=== PATIENT | female | born 1995 | race Caucasian/White ===

== ENCOUNTER 2023-03-23 13:12 | Emergency (ER) | payer OTHER, SELFPAY ==
--- NOTE | ~2023-03-23 | US_ITS ---
EXAMINATION: US ABDOMEN LIMITED CLINICAL INFORMATION: Right upper quadrant pain. COMPARISON: None available. TECHNIQUE: Real-time imaging of the right upper quadrant abdominal viscera. FINDINGS: PANCREAS: Normal. LIVER: Normal. The liver is normal in size. The liver contour is normal. Parenchymal echogenicity is normal. No focal hepatic lesion. There is no intrahepatic biliary duct dilatation seen. GALLBLADDER: Normal. The gallbladder is physiologically distended without evidence of stones, sludge, polyps, wall thickening or pericholecystic fluid. COMMON BILE DUCT: Normal in caliber measuring 0.3 cm in diameter. RIGHT KIDNEY: Normal. No hydronephrosis. No renal calculi or focal parenchymal lesions. The kidney measures 10.6 cm in maximum dimension. FREE FLUID: None. US/US abdomen limited IMPRESSION: Normal right upper quadrant abdomen ultrasound.
[2023-03-23 13:38] VITALS: BP 116/47; PULSE 81; RESP 18; TEMP 36.6; O2SAT 99; BMI 35.1
--- NOTE | 2023-03-23 13:38 | ED_ITS ---
HPI - Abdominal Pain General Chief Complaint: Abdominal Pain Stated Complaint: pain in stomach Time Seen by Provider: 03/23/23 14:39 Source: patient Mode of arrival: ambulatory History of Present Illness HPI narrative: 27-year-old female who presents with onset of epigastric discomfort yesterday that she describes as being intermittent and crampy in nature associated with some nausea and 1 episode of vomiting but denies any diarrhea. Otherwise no recent travel no urinary symptoms. Related Data Previous Rx's Medication Instructions Recorded ondansetron HCl 4 mg tablet 4 mg PO Q8H PRN nausea and 03/23/23 vomiting 4 days #10 tabs Allergies Allergy/AdvReac Type Severity Reaction Status Date / Time No Known Allergies Allergy Unverified 03/26/20 19:33 [No Known Allergies*] Review of Systems Review of Systems Pertinent positives and negatives as stated in HPI PMFSH Past Medical History Source: nursing notes reviewed Social History Social History Advance Directives: No Advance Directives Information Provided: No Physical Exam ED Vital Signs: Vital Signs - 24 hr 03/23/23 13:38 Temperature 98 F Pulse Rate 81 Respiratory Rate 18 Blood Pressure 116/47 L Pulse Oximetry 99 BMI result Body Mass Index 35.1 VITAL SIGNS: Reviewed. GENERAL: Well developed, well nourished, in no acute distress. HEAD: Normocephalic/atraumatic EYES: PERRLA, EOMI EARS: Ext canals without abnormality, TMs non-bulging and non-erythematous NOSE: Nares patent bilateral OROPHARYNX: no oral lesions noted, posterior pharynx clear NECK: Supple, no adenopathy LUNGS: Normal breath sounds. No adventitious sounds or accessory muscle use. SpO2<99> CARDIOVASCULAR: Regular rate and rhythm without noted murmurs ABDOMEN: Soft, mild epigastric pain without right upper quadrant pain, non- distended with bowel sounds. MUSCULOSKELETAL: No tenderness, deformities, or effusions noted on gross inspection. EXTREMITIES: No cyanosis, clubbing or edema. SKIN: Inspection of the skin reveals no rashes NEUROLOGIC: Alert and oriented x 4. Strength and sensation to light touch were grossly intact x 4. Course Course Course Narrative: This is an RME: Additional HPI, ROS, PE not included below will be deferred to primary provider. This is a 81-he[age]-female, with a past medical history of , presenting to the emergency department with complaints of abdominal pain since yesterday. Patient reports that she had intermittent cramping/burning right upper quadrant pain and epigastric pain since yesterday which was coming and going, reports that today pain has been constant. Endorsing nausea. Reports tubal ligation denies chance of . Denies history of abdominal surgeries. Plan: Labs, UA, ultrasound Medical Decision Making Medical Decision Making MDM Narrative: 27-year-old female with history and clinical presentation, DDX: Viral syndrome, gastritis, pancreatitis, cholecystitis, gastroenteritis I reviewed all investigations and hematologic indices are grossly within normal limits, there is no evidence of leukocytosis or left shift, no anemia or thrombocytopenia but there is a noted bump in eosinophils which may be consistent with patient's GI symptoms and gastroenteritis. Chemistry and sees are grossly within normal limits, no MARIA ESTHER and potassium levels are within normal range, there is a mild bump in ALT but otherwise liver enzymes are without abnormalities. Urinalysis does show trace leukocyte esterase with rbc's that are likely responsible for the leukocyte esterase and otherwise negative for UTI. Ultrasound negative for evidence to suggest any renal hydronephrosis, cholecystitis, lipase was negative and very low clinical suspicion for any evidence of pancreatitis. Patient received a GI cocktail and on re-evaluation is feeling much improved and will be discharged home. Differential Diagnosis Differential Diagnoses: The differential diagnosis associated with the presentation includes Please see the discussion above Admission/Observation Consideration of admission/observation: Escalation of care including admission/observation considered Please see the discussion above Lab Data [facility] Lab Attestation statement: I reviewed the patient's lab results. Please see the discussion above 03/23/23 14:27 03/23/23 14:27 Labs: Lab Results 03/23/23 Range/Units 14:27 WBC 7.7 (4.8-10.8) X10*3/uL RBC 4.59 (4.20-5.50) X10*6/uL Hgb 14.4 (12.0-16.0) g/dl Hct 42.2 (37.0-47.0) % MCV 91.9 (80.0-98.0) fL MCH 31.4 (27.0-33.0) pg MCHC 34.1 (31.0-35.0) g/dl RDW 11.5 (11.0-16.0) % Plt Count 166 (160-400) X10*3/uL MPV 12.1 (9.4-12.3) fL Immature Gran % (Auto) 0.4 (0.0-0.4) % Neut % (Auto) 58.1 (45-73) % Lymph % (Auto) 28.1 (20-40) % [place] % (Auto) 7.5 (2-11) % Eos % (Auto) 5.6 H (0-4) % Baso % (Auto) 0.3 (0-2) % Lymph # (Auto) 2.2 (1.2-4.9) X10*3/uL [place] # (Auto) 0.6 (0.1-1.2) X10*3/uL Eos # (Auto) 0.4 (0.0-0.4) X10*3/uL Baso # (Auto) 0.0 (0.0-0.2) X10*3/uL Abs Immat Gran (auto) 0.03 (0.00-0.03) X10*3/uL Absolute Neuts (auto) 4.5 (2.0-8.3) x10*3/uL Absolute Nucleated RBC 0.000 (0.0-0.012) X10*3/uL Nucleated RBC % (auto) 0.0 (0.0-0.2) /100WBC Sodium 141 (135-145) mmol/L Potassium 3.8 (3.3-5.1) mmol/L Chloride 109 H (96-108) mmol/L Carbon Dioxide 29 (22-29) mmol/L Anion Gap 7 L (12-20) BUN 13 (9-16) mg/dL Creatinine 0.76 (0.5-1.4) mg/dL Estim Creat Clear Calc 114.9 Estimated GFR > 60 Random Glucose 87 (60-115) mg/dL Calcium 9.2 (8.4-10.2) mg/dL Total Bilirubin 0.7 (0.0-1.0) mg/dL Direct Bilirubin 0.3 (0.0-0.5) mg/dL AST 22 (5-31) U/L ALT 37 H (0-31) U/L Alkaline Phosphatase 49 (39-117) U/L Total Protein 6.7 (6.5-8.0) g/dL Albumin 4.2 (3.5-5.0) g/dL Lipase 12 (8-78) U/L Urine Color Yellow Urine Appearance Clear Urine pH 8.5 (5.0-9.0) Ur Specific [place] 1.025 (1.005-1.025) Urine Protein Trace (Neg-Trace) mg/dL Urine Glucose (UA) Negative (Negative) mg/dL Urine Ketones Negative (Negative) mg/dL Urine Blood Negative (Negative) Urine Nitrite Negative (Negative) Ur Leukocyte Esterase Trace H (Negative) Urine RBC 3-5 H (0-2) /HPF Urine WBC 0-5 (0-5) /HPF Ur Squamous Epith Cells 3-5 (0-2) /HPF Urine Bacteria None Seen (None Seen) Hyaline Casts 0-2 (0-2) /LPF Radiology Impression Discussion of test interpretation with radiology: I have reviewed the radiologist's reading. Radiologist Impression: Please see the discussion above Medications Administered Discontinued Medications Generic Name Dose Route Start Last Admin Trade Name Freq PRN Reason Stop Dose Admin Lidocaine/Diphenhydr/Alum/Mg/Simeth 10 ml 03/23/23 14:59 03/23/23 15:40 Mag&Al/Sim/Diphenhyd/Lidocaine 10 Ml Oral.Susp PO 03/23/23 15:00 10 ml ONCE ONE Administration Protocol Ondansetron HCl 4 mg 03/23/23 14:59 03/23/23 15:41 Ondansetron Odt 4 Mg Tab.Rapdis TRANSLINGU 03/23/23 15:00 4 mg ONCE ONE Administration Discharge Plan Discharge Clinical Impression: Gastroenteritis Patient Disposition: Home, Self-Care Instructions: Diet for Stomach Ulcers and Gastritis (ED), Gastroenteritis (ED) Additional Instructions: 1. Continue stay well hydrated, you have a prescription for nausea control. 2. Recommend follow-up with your primary care doctor. Return to the ER for any worsening symptoms. Prescriptions: New ondansetron HCl 4 mg tablet 4 mg PO Q8H PRN (Reason: nausea and vomiting) 4 Days Qty: 10 0RF Referrals: Agatha Richards MD [Primary Care Provider] -
[2023-03-23 14:41] LABS: MANUAL DIFF FLAG NO
[2023-03-23 14:45] LABS: Appearance Urine Clear; Basophils Percent Auto 0.3 % (0-2); Color Urine Yellow; Eosinophils Absolute Auto 0.4 X10*3/uL (0.0-0.4); Eosinophils Percent Auto 5.6 % (0-4); Glucose Urine UA Negative (Negative); Hematocrit 42.2 % (37.0-47.0); Hemoglobin 14.4 g/dl (12.0-16.0); Imm Gran Abs Auto 0.03 X10*3/uL (0.00-0.03); Imm Gran Pct Auto 0.4 % (0.0-0.4); Leukocyte Esterase Urine Trace (Negative); Lymphocytes Absolute Auto 2.2 X10*3/uL (1.2-4.9); Lymphocytes Percent Auto 28.1 % (20-40); Mean Corpuscular HGB Conc 34.1 g/dl (31.0-35.0); Mean Corpuscular Hemoglobin 31.4 pg (27.0-33.0); Mean Corpuscular Volume 91.9 fL (80.0-98.0); Mean Platelet Volume 12.1 fL (9.4-12.3); Monocytes Absolute Auto 0.6 X10*3/uL (0.1-1.2); Monocytes Percent Auto 7.5 % (2-11); Neutrophils Absolute Auto 4.5 x10*3/uL (2.0-8.3); Neutrophils Percent Auto 58.1 % (45-73); Nitrite Urine Negative (Negative); PH 8.5 (5.0-9.0); Platelet Count 166 X10*3/uL (160-400); Red Blood Count 4.59 X10*6/uL (4.20-5.50); Red Cell Distribution Width 11.5 % (11.0-16.0); Specific Gravity - Urine 1.025 (1.005-1.025); UMIC TRIGGER UACC YES; Urine Blood Negative (Negative); Urine Ketones Negative (Negative); Urine Protein Trace mg/dL (Neg-Trace); White Blood Count 7.7 X10*3/uL (4.8-10.8)
[2023-03-23 14:48] LABS: Bacteria Urine None Seen (None Seen); Hyaline Casts Urine 0-2 /LPF (0-2); WBC Urine 0-5 /HPF (0-5)
--- OUTSIDE RECORDS SUMMARY | 2023-03-23 14:49 | XMS_ITS | Continuity of Care Document ---
Author Name Unknown Organization [facility] ter Address [address] [place] [address]- Care Team Providers Care Side Stitching Machine Operator Name Role Phone Agatha Richards MD Primary Care Physician [phone] Encounter [facility] Date(s): 10/04/21 - 10/04/[address] [id number] Discharge Disposition: A-D/C Home Attending Physician: Dre Dempsey MD Admitting Physician: Dre Dempsey MD Referring Physician: Dre Dempsey MD Allergies, Adverse Reactions, Alerts No Known Medication Allergies Immunizations Given and Recorded Vaccine Date Status Refusal Reason Measles/Mumps/Rubella Virus Vaccine 06/08/19 Given tetanus/diphtheria/pertussis, acel(Tdap) 12/21/14 Given influenza virus vaccine, inactivated 06/17/14 Give n Medications ibuprofen 800 mg oral tablet 800 mg, 1, tablet, By Mouth, Every 8 hours, # 40 tablet, Refills 0, Tot. Refills 0, Maintenance, 10/04/21 14:43:00 EDT, Route to Pharmacy Electronically, [id number], Partial fill upon patientrequest if the prescription is for a schedule II op... Start Date: 10/04/21 Status: Ordered oxyCODONE 5 mg oral capsule 1 capsule = 5 mg, By Mouth, Every 6 hours, PRN as needed for pain, # 12 capsule, 0 Refills, Maintenance, 10/04/21 14:43:00 EDT, Capsule, [id number], Partial fill upon patient request if the prescription is for a schedule II opioid drug., 157.4... Start Date: 10/04/21 Status: Ordered Tylenol 325 mg oral capsule 2 capsule = 650 mg, By Mouth, Every 4 hours, PRN as needed for pain, # 50 tablet, 0 Refills, Maintenance, 10/04/21 14:43:00 EDT, Capsule, [id number], Partial fill upon patient request if the prescription is for a schedule II opioid drug., 157.... Start Date: 10/04/21 Status: Ordered Problem List Condition Effective Dates Status Health Status Inform ant Anemia(Confirmed) Active Asthma(Confirmed) Active Abdominal mass, left upper quadrant(Confirmed) Active Obese class I(Confirmed) Active Vital Signs Most recent to oldest [Reference Range]: 1 2 3 Height 157.4 cm (10/04/21 12:27 PM) 157.4 cm (09/28/21 12:49 PM) Weight 84.5 kg (10/04/21 12:27 PM) 84.5 kg (09/28/21 12:49 PM) Oxygen Saturation [94-100 %] 96 % (10/04/21 3:45 PM) 95 % (10/04/21 3:30 PM) 98 % (10/04/21 3:15 PM) Pulse Rate [55-90 bpm] 62 bpm (10/04/21 12:27 PM) Body Mass Index [18.5-24.99] 34.11 *>HHI* (10/04/21 12:27 PM) 34.11 *>HHI* (09/28/21 12:49 PM) Blood Pressure [90-138/55-84 mm Hg] 116/67mm Hg (10/04/21 3:45 PM) 110/62mm Hg (10/04/21 3:30 PM) 120/64mm Hg (10/04/21 3:15 PM) Respiratory Rate [16-30 br/min] 11 br/min *L* (10/04/21 3:45 PM) 10 br/min *L* (10/04/21 3:30 PM) 10 br/min *L* (10/04/21 3:15 PM) Temperature [96.8-100.4 DegF] 97.3 DegF (10/04/21 2:45 PM) 99.4 DegF (10/04/21 12:27 PM) Mode of Delivery (Oxygen) Room air (10/04/21 4:30 PM) Room air (10/04/21 2:45 PM) Room air (10/04/21 12:27 PM) Blood pressure sites Arm, right (10/04/21 2:45 PM) Arm, left (10/04/21 12:27 PM) Temperature Route Temporal (10/04/21 2:45 PM) Temporal (10/04/21 12:27 PM) Dry Weight 84.5 kg (09/28/21 12:49 PM) Weight Obtained Via Patient/family state d (09/28/21 12:49 PM) Dry Weight Obtained Via Patient/family s tated (09/28/21 12:49 PM) Social History Social History Type Response Smoking Status Never smoker; Tobacc o user in household: No entered on: 10/17/14 Sex Female
--- OUTSIDE RECORDS SUMMARY | 2023-03-23 14:49 | XMS_ITS | Continuity of Care Document ---
Author Name Unknown Organization [facility] Address [address] [place] [address]- Care Team Providers Care Retail Service Lead Merchandiser Name Role Phone Tiera Damon DO Primary Care Physician Encounter [facility] [place] Date(s): 01/25/21 - 02/24/21 [facility] [address] [place] [id number] Allergies, Adverse Reactions, Alerts No Known Medication Allergies Substance Reaction Severity Status NKA Active Immunizations Given and Recorded Vaccine Date Status Refusal Reason Measles/Mumps/Rubella Virus Vaccine 06/08/19 Given tetanus/diphtheria/pertussis, acel(Tdap) 12/21/14 Given influenza virus vaccine, inactivated 06/17/14 Give n Problem List Condition Effective Dates Status Health Status Inform ant Asthma(Confirmed) Active Abdominal mass, left upper quadrant(Confirmed) Active Social History Social History Type Response Smoking Status Never smoker; Tobacc o user in household: No entered on: 10/17/14 Sex Female
--- OUTSIDE RECORDS SUMMARY | 2023-03-23 14:49 | XMS_ITS ---
Author Name Unknown Organization [facility] Address [address] [facility] [address] [address] [place] [address]- Encounter Date(s): 07/30/20 - 07/30/20 [facility] [address] [place] [address]- [phone] Encounter Diagnosis Rt groin pain(Discharge Diagnosis) - 07/30/20 Discharge Disposition: 01 Home or Self Care Attending Physician: MAXIMILIANO HUERTAS MD Admitting Physician: PHYSICIAN , EMERGENCY Allergies, Adverse Reactions, Alerts No Known Medication Allergies Vital Signs Most recent to oldest [Reference Range]: 1 2 3 Temperature Oral [36-37.9 DegC] 36.9 DegC (07/30/20 7:30 PM) 36.9 DegC (07/30/20 4:49 PM) Peripheral Pulse Rate [60-100 bpm] 67 bpm (07/30/20 4:49 PM) Heart Rate Monitored [60-100 bpm] 90 bpm (07/30/20 7:30 PM) 80 bpm (07/30/20 7:00 PM) 79 bpm (07/30/20 6:00 PM) Respiratory Rate [14-20 br/min] 18 br/min (07/30/20 7:30 PM) 15 br/min (07/30/20 7:00 PM) 18 br/min (07/30/20 6:00 PM) Blood Pressure [90-140/60-90 mmHg] 112/66mmHg (07/30/20 7:30 PM) 88/57mmHg *LOW* (07/30/20 7:00 PM) 102/66mmHg (07/30/20 6:00 PM) Mean Arterial Pressure 64 mmHg (07/30/20 7:00 PM) 75 mmHg (07/30/20 6:00 PM) Results Laboratory List Name Date Automated Differential 07/30/20 CBC with Diff 07/30/20 Chemistry Panel 7 (CHEM7) 07/30/20 Glomerular Filtration Rate Calculation PT 07/30/20 hCG Qual Urine 07/30/20 Most recent to oldest [Reference Range]: 1 Creatinine [0.6-1.0 mg/dL] 0.8 mg/dL (07/30/20 6:02 PM) U hCG Qual Negative 1 (07/30/20 6:02 PM) Basophil Auto [0.0-1.0 %] 0.7 % (07/30/20 6:02 PM) BUN [7-18 mg/dL] 12 mg/dL (07/30/20 6:02 PM) Chloride Level [98-107 mEq/L] 106 mEq/L (07/30/20 6:02 PM) CO2 [21-32 mmol/L] 28 mmol/L (07/30/20 6:02 PM) Eos Auto [1.0-3.0 %] 9.2 % *HI* (07/30/20 6:02 PM) Glucose Level [70-100 mg/dL] 87 mg/dL (07/30/20 6:02 PM) Hct [37.0-47.0 %] 38.7 % (07/30/20 6:02 PM) Hgb [12.0-16.0 gm/dL] 13.4 gm/dL (07/30/20 6:02 PM) INR 1.1 2 *NA* (07/30/20 6:02 PM) Lymph Auto [22.0-44.0 %] 35.4 % (07/30/20 6:02 PM) MCH [27.0-31.0 pg] 31.8 pg *HI* (07/30/20 6:02 PM) MCHC [31.0-37.0 gm/dL] 34.7 gm/dL (07/30/20 6:02 PM) MCV [88.0-100.0 fl] 91.7 fl (07/30/20 6:02 PM) [place] Auto [3.0-7.0 %] 6.2 % (07/30/20 6:02 PM) MPV [7.0-11.1 fl] 8.5 fl (07/30/20 6:02 PM) Neutro Auto [40.0-70.0 %] 48.6 % (07/30/20 6:02 PM) Platelet [150-450 k/mcL] 207 k/mcL (07/30/20 6:02 PM) Potassium Level [3.5-5.1 mEq/L] 3.9 mEq/ L (07/30/20 6:02 PM) PT [10.2-12.9 second(s)] 12.3 second(s) (07/30/20 6:02 PM) RBC [4.20-5.40 million/mcL] 4.22 million /mcL (07/30/20 6:02 PM) RDW [11.5-13.5 %] 13.3 % (07/30/20 6:02 PM) Sodium Level [136-145 mEq/L] 141 mEq/L (07/30/20 6:02 PM) WBC [4.5-11.0 k/mcL] 5.3 k/mcL (07/30/20 6:02 PM) Abs Neutrophil [1.60-6.60 k/mcL] 2.57 k/ mcL (07/30/20 6:02 PM) Abs Lymphocyte [0.90-3.90 k/mcL] 1.90 k/ mcL (07/30/20 6:02 PM) Abs Monocyte [0.20-1.00 k/mcL] .33 k/mcL (07/30/20 6:02 PM) Abs Eosinophil [0.00-0.40 k/mcL] .49 k/m cL *HI* (07/30/20 6:02 PM) Abs Basophil [0.00-0.10 k/mcL] .04 k/mcL (07/30/20 6:02 PM) eGFR-AA [>=60 mL/min/1.73m^2] >60 mL/min /1.73m^2 (07/30/20 6:02 PM) eGFR-KIM [>=60 mL/min/1.73m^2] >60 mL/mi n/1.73m^2 (07/30/20 6:02 PM) Anion Gap 7 *NA* (07/30/20 6:02 PM) 1Result Comment: Device #[id number] 2Result Comment: Autoverified Result by Discern Rule Social History Social History Type Response Smoking Status Never (less than 100 in lifetime) entered on: 07/30/20 Sex Female Hospital Discharge Instructions Patient Education 07/30/2020 19:28:34 Abdominal Pain, Unknown Cause, (Female) Unknown Causes of Abdominal Pain??(Female) The exact cause of your belly (abdominal) pain is not clear. This does not mean that this is something to worry about. Everyone likes to know the exact cause of the problem. But sometimes with belly pain, there is no clear-cut cause, and this could be a good thing. The good news is that your symptoms can be treated, and you will feel better.?? Your condition does not seem serious now. But sometimes the signs of a serious problem may take more time to appear. For this reason,??it is important for you to watch for any new symptoms, problems,??or worsening of your condition. Over the next few days, the abdominal pain may come and go. Or it may be constant. Other common symptoms can include nausea and vomiting. Sometimes it can be difficult to tell if you feel nauseous. You may just feel bad and not connect that feeling to nausea. Constipation, diarrhea, and a fever maygo along with the pain. The pain may continue even if treated correctly over the following days. Depending on how things go, sometimes the cause can become clear and may need more??or different treatment. Additional evaluations, medicines, or tests may also be needed. Home care Your healthcare provider may prescribe medicine for pain, symptoms, or an infection. ??Follow the healthcare provider's instructions for taking these medicines. General care ???Rest as much as you can until your next exam. No strenuous activities. ???Try to find positions that ease discomfort. A small pillow placed on the abdomen may help relieve pain. ???Something warm on your abdomen (such as a heating pad) may help, but be careful not to burn yourself. Diet ???Don???t??force yourself to eat, especially if having cramps, vomiting, or diarrhea. ???Water is important so you don't get dehydrated. Soup may also be good. Sports drinks may also help, especially if they are not too acidic. Don't drink sugary drinks as this can make things worse. Take liquids in small amounts. Don???t??guzzle them. ???Caffeine sometimes makes the pain and cramping worse. ???Don???t take??dairy products if you have vomiting or diarrhea. ???Don't eat large amounts at a time. Wait a few minutes between bites. ???Eat a diet low in fiber (called a low-residue diet). Foods allowed include refined breads, whiterice, fruit and vegetable juices without pulp, tender meats. These foods will pass more easily through the intestine. ???Don???t have??whole-grain foods, whole fruits and vegetables, meats, seeds and nuts, fried or fatty foods, dairy, alcohol and spicy foods until your symptoms go away. Follow-up care Follow up with your healthcare provider, or as advised, if your pain does not begin to improve in the next 24 hours. Call 911 Call??911 if any of these occur: ???Trouble breathing ???Confusion ???Fainting or loss of consciousness ???Rapid heart rate ???Seizure When to seek medical advice Call your healthcare provider right away if any of these occur: ???Pain gets worse or moves to the right lower abdomen ???New or worsening vomiting or diarrhea ???Swelling of the abdomen ???Unable to pass stool for more than??3 days ???Fever of 100.4??F (38??C) or higher, or as directed by your healthcare provider. ???Blood in vomit or bowel movements (dark red or black color) ???Yellow color of eyes and skin (jaundice) ???Weakness, dizziness ???Chest, arm, back, neck, or jaw pain ???Unexpected vaginal bleeding or missed period ???Can't keep down liquids or water and you are getting dehydrated ?? [id number] [employer]. [address] [place] [address], [place] [address]. All rights reserved. This information is not intended as a substitute for professional medical care. Always follow your healthcare professional's instructions. Follow Up Care 07/30/2020 16:48:40 With:[facility] Address: [place], [place] Business (1) When:3 Days Mental Status 07/30/20 Barriers to Learning None evident Languages Azeri
--- OUTSIDE RECORDS SUMMARY | 2023-03-23 14:49 | XMS_ITS | Continuity of Care Document ---
Author Name Unknown Organization [facility] Address [address] [place] [address]- Care Team Providers Care Buffing Wheel Raker Name Role Phone Tiera Damon DO Primary Care Physician [phone] [place] [facility] [place]s): 01/27/21 - 02/26/21 [facility] [address] [place] [id number] Allergies, Adverse Reactions, Alerts No Known [...]
--- OUTSIDE RECORDS SUMMARY | 2023-03-23 14:49 | XMS_ITS | Continuity of Care Document ---
Author Name Unknown Organization [facility] ter Address [address] [place] [address]- Care Team Providers Care Civil Engineering Project Designer Name Role Phone Tiera Damon DO Primary Care Physician Encounter [facility] Date(s): 08/09/19 - 08/09/[address] [address]- [facility] Attending Physician: Tomi Lima MD Allergies, Adverse Reactions, Alerts No Known Medication Allergies Substance Reaction Severity Status NKA Active Immunizations Given and Recorded Vaccine Date Status Refusal Reason Measles/Mumps/Rubella Virus Vaccine 06/08/19 Given tetanus/diphtheria/pertussis, acel(Tdap) 12/21/14 Given influenza virus vaccine, inactivated 06/17/14 Give n Medications ferrous sulfate 325 mg oral enteric coated tablet 1 tablet = 325 mg, By Mouth, 2 times a day, # 90 tablet, 0 Refills, Maintenance, 10/13/14 22:20:50,EC Tablet, 1 tablet By Mouth 2 times a day Start Date: 10/13/14 Status: Ordered ibuprofen 600 mg oral tablet 1 tablet = 600 mg, By Mouth, 3 times a day, PRN Pain , Mild, # 30 tablet, 0 Refills, Maintenance, 01/14/15 13:43:14, Tablet Start Date: 01/14/15 Stop Date: 01/24/15 Status: Ordered ibuprofen 600 mg oral tablet 1 tablet = 600 mg, By Mouth, 3 times a day, # 30 tablet, 0 Refills, Maintenance, 01/14/15 13:51:40,Tablet Start Date: 01/14/15 Stop Date: 01/24/15 Status: Ordered ibuprofen 600 mg oral tablet 600 mg, 1, tablet, By Mouth, 3 times a day, PRN, # 42 tablet, Refills 0, Tot. Refills 0, Maintenance, Pain , Mild, 10/11/15 16:42:03, Print Requisition Start Date: 10/11/15 Stop Date: 10/25/15 Status: Ordered ibuprofen 600 mg oral tablet 1 tablet = 600 mg, By Mouth, 4 times a day, # 30 tablet, 2 Refills, Maintenance, 02/18/15 7:29:36, Tablet Start Date: 02/18/15 Status: Ordered ibuprofen 600 mg oral tablet 1 tablet = 600 mg, By Mouth, Every 8 hours, Take with food, # 15 tablet, 0 Refills, Maintenance, 02/12/15 16:32:36, Tablet Start Date: 02/12/15 Stop Date: 02/17/15 Status: Ordered loperamide 2 mg oral tablet 1 tablet = 2 mg, By Mouth, Every 4 hours, PRN for loose stool, # 60 tablet, 0 Refills, Maintenance,01/02/16 15:10:34, Tablet Start Date: 01/02/16 Status: Ordered Multivitamin, By Mouth, 0 Refills, Maintenance, 06/17/14 15:10:15 Start Date: 06/17/14 Status: Ordered Nitrofurantoin 100 mg, By Mouth, 2 times a day, Maintenance, 01/05/16 17:08:56 Start Date: 01/05/16 Stop Date: 01/10/16 Status: Ordered Percocet-5/325 325 mg-5 mg oral tablet 1 tablet, By Mouth, Every 4 hours, PRN for pain, # 24 tablet, 0 Refills, Maintenance, 02/18/15 7:29:35, Tablet Start Date: 02/18/15 Status: Ordered Zofran 4 mg oral tablet 1 tablet = 4 mg, By Mouth, Every 8 hours, PRN as needed for nausea/vomiting, # 9 tablet, 0 Refills,Maintenance, 07/22/17 23:16:31, Tablet Start Date: 07/22/17 Stop Date: 07/25/17 Status: Ordered ZyrTEC 10 mg oral tablet 1 tablet = 10 mg, By Mouth, Daily, # 30 tablet, 0 Refills, Maintenance, 12/09/15 12:41:27, Tablet Start Date: 12/09/15 Status: Ordered Problem List Condition Effective Dates Status Health Status Inform ant Asthma(Confirmed) Active Abdominal mass, left upper quadrant(Confirmed) Active Social History Social History Type Response Smoking Status Never smoker; Tobacc o user in household: No entered on: 10/17/14 Sex Female
--- OUTSIDE RECORDS SUMMARY | 2023-03-23 14:49 | XMS_ITS | Continuity of Care Document ---
Author Name Unknown Organization [facility] ter Address [address] [place] [id number]- Care Team Providers Care Spa Associate Name Role Phone Tiera Damon DO Primary Care Physician En[place] [facility] Date(s): 07/15/19 - 07/15/[address] [address]- [facility] Attending Physician: Karen Diaz MD Allergies, Adverse Reactions, Alerts No Known [...]
--- OUTSIDE RECORDS SUMMARY | 2023-03-23 14:49 | XMS_ITS | Continuity of Care Document ---
Author Name Unknown Organization [facility] Address [address] [place] [id number] Care Team Providers Care Concrete Pointer Name Role Phone Tiera Damon DO Primary Care Physician Encounter [facility] Date(s): 03/26/21 - 04/25/21 [facility] [address] [place] [id number] Allergies, Adverse Reactions, Alerts No Known [...]
[2023-03-23 15:00] LABS: Alanine Aminotransferase 37 U/L (0-31); Albumin Level 4.2 g/dL (3.5-5.0); Alkaline Phosphatase 49 U/L (39-117); Anion Gap 7 (12-20); Aspartate Amino Transferase 22 U/L (5-31); Bilirubin Direct 0.3 mg/dL (0.0-0.5); Bilirubin Total 0.7 mg/dL (0.0-1.0); Blood Urea Nitrogen 13 mg/dL (9-16); Calcium 9.2 mg/dL (8.4-10.2); Carbon Dioxide 29 mmol/L (22-29); Chloride 109 mmol/L (96-108); Creatinine Clr Calc Pharmacy 114.9; Estimated Glomerular Filt Rate > 60; Glucose Random 87 mg/dL (60-115); Lipase 12 U/L (8-78); Potassium 3.8 mmol/L (3.3-5.1); Sodium 141 mmol/L (135-145); Total Protein 6.7 g/dL (6.5-8.0)
[2023-03-23] MEDS: Mag&Al/Sim/Diphenhyd/Lidocaine 10 ML ORAL.SUSP PO (15:40)
[2023-03-23] MEDS: Ondansetron ODT 4 MG TAB.RAPDIS TRANSLINGU (15:41)
[2023-03-23 16:05] LABS: HCG Quantitative < 2 mIU/mL
== END 2023-03-23 16:41 | disposition home or self-care (01) ==
PROVIDERS: Physician Assistant Medical; Emergency Provider Student in an Organized Health Care Education/Training Program; PCP Internal Medicine
DX: K52.9 Noninfective gastroenteritis and colitis, unspecified (principal)
CPT/HCPCS: 36415; 76705; 80048; 80076; 81001; 83690; 84702; 85025; 99284

== ENCOUNTER 2023-12-13 09:54 | Outpatient (REF) | payer OTHER, SELFPAY ==
[2023-12-13 10:30] LABS: MANUAL DIFF FLAG NO
[2023-12-13 10:43] LABS: Basophils Percent Auto 0.3 % (0-2); Eosinophils Absolute Auto 0.5 X10*3/uL (0.0-0.4); Hematocrit 40.5 % (37.0-47.0); Hemoglobin 14.3 g/dl (12.0-16.0); Imm Gran Abs Auto 0.03 X10*3/uL (0.00-0.03); Imm Gran Pct Auto 0.4 % (0.0-0.4); Lymphocytes Percent Auto 26.4 % (20-40); Mean Corpuscular HGB Conc 35.3 g/dl (31.0-35.0); Mean Corpuscular Hemoglobin 32.2 pg (27.0-33.0); Mean Corpuscular Volume 91.2 fL (80.0-98.0); Mean Platelet Volume 11.7 fL (9.4-12.3); Monocytes Absolute Auto 0.5 X10*3/uL (0.1-1.2); Neutrophils Absolute Auto 4.4 x10*3/uL (2.0-8.3); Neutrophils Percent Auto 58.9 % (45-73); Platelet Count 198 X10*3/uL (160-400); Red Blood Count 4.44 X10*6/uL (4.20-5.50); Red Cell Distribution Width 11.8 % (11.0-16.0); White Blood Count 7.4 X10*3/uL (4.8-10.8)
[2023-12-13 10:52] LABS: Estimated Average Glucose 82 mg/dL; Hemoglobin A1c % 4.5 % (<6.0)
[2023-12-13 11:08] LABS: Alanine Aminotransferase 27 U/L (0-31); Albumin Level 4.4 g/dL (3.5-5.0); Alkaline Phosphatase 49 U/L (39-117); Anion Gap 14 (12-20); Aspartate Amino Transferase 22 U/L (5-31); Bilirubin Total 0.9 mg/dL (0.0-1.0); Blood Urea Nitrogen 14 mg/dL (9-16); Calcium 9.4 mg/dL (8.4-10.2); Carbon Dioxide 26 mmol/L (22-29); Chloride 105 mmol/L (96-108); Estimated Glomerular Filt Rate > 60; Glucose Random 96 mg/dL (60-115); Potassium 4.5 mmol/L (3.3-5.1); Sodium 140 mmol/L (135-145); Total Protein 7.1 g/dL (6.5-8.0)
[2023-12-13 11:13] LABS: Thyroid Stimulating Hormone 1.58 uIU/mL (0.32-4.0)
== END 2023-12-13 09:55 | disposition home or self-care (01) ==
LOC: HO.10HDL 09:54
PROVIDERS: Visit Provider Internal Medicine
DX: Z00.00 Encounter for general adult medical examination without abnormal findings (principal); B37.32 Chronic candidiasis of vulva and vagina; F33.41 Major depressive disorder, recurrent, in partial remission; I10 Essential (primary) hypertension; Z68.35 Body mass index [BMI] 35.0-35.9, adult; Z72.0 Tobacco use
CPT/HCPCS: 36415; 80053; 83036; 84443; 85025

== ENCOUNTER 2024-11-27 10:45 | Outpatient (REF) | payer OTHER, SELFPAY ==
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
[2024-11-27 14:45] LABS: Alanine Aminotransferase 32 U/L (0-31); Albumin Level 4.6 g/dL (3.5-5.0); Anion Gap 11 (12-20); Aspartate Amino Transferase 30 U/L (5-31); Blood Urea Nitrogen 13 mg/dL (9-16); Calcium 9.3 mg/dL (8.4-10.2); Carbon Dioxide 26 mmol/L (22-29); Chloride 106 mmol/L (96-108); Cholesterol 149 mg/dL (<200); Estimated Glomerular Filt Rate > 60; Glucose Random 105 mg/dL (60-115); HDL Cholesterol 52 mg/dL (>40); LDL Cholesterol Calculated 85 mg/dL (<100); Potassium 4.3 mmol/L (3.3-5.1); Sodium 139 mmol/L (135-145); Total Protein 6.8 g/dL (6.5-8.0); Triglycerides 63 mg/dL (<150)
[2024-11-27 14:52] LABS: Alkaline Phosphatase 46 U/L (39-117)
[2024-11-27 14:55] LABS: Thyroid Stimulating Hormone 1.37 uIU/mL (0.32-4.0)
== END 2024-11-27 10:46 | disposition home or self-care (01) ==
LOC: HO.10HDL 10:45
PROVIDERS: Visit Provider Internal Medicine
DX: E28.2 Polycystic ovarian syndrome (principal); N89.8 Other specified noninflammatory disorders of vagina; E66.9 Obesity, unspecified; F41.0 Panic disorder [episodic paroxysmal anxiety]; R14.0 Abdominal distension (gaseous)
CPT/HCPCS: 36415; 80053; 80061; 84443

== ENCOUNTER 2024-12-03 09:25 | Outpatient (REF) | payer OTHER, SELFPAY ==
--- OUTSIDE RECORDS SUMMARY | 2024-12-03 09:58 | XMS_ITS | Encounter Summary ---
Author Organization [facility] Address [address] [place] [address] Care Team Providers Care Plush Brusher Name Role Phone Agatha Richards MD Primary Care Provider [phone] Reason for Visit * Reason Onset Date Comments Results 11/28/2024 Encounter Details Date Type Department Care Team ([facility] st Contact Info) Description 11/28/2024 Telephone Obstetrics [facility] [place]necology - [place] [address] [place] [phone] Mariam Henderson MA Results Social History Tobacco Use Types Packs/Day Years [...] on file Sexual Orientation Not on file documented as of this encounter Progress Notes * Mariam Henderson MA - 11/28/2024 10:22 AM EDT See result note for documentation. * Aliya Kasper - 11/28/2024 10:09 AM EDT Pt called back - no answer at ext [phone] Please try again at the same number Thank you * Mariam Henderson MA - 11/28/2024 9:58 AM EDT Left message for pt to return call to office. documented in this encounter Plan of Treatment Upcoming Encounters Date Type Department Care Team (Late st Contact Info) Description 01/14/2025 9:30 AM EDT Office Visit Bariatric Surgery - [place] [address] [facility] [address] [place] [address] Kevin Bañuelos MD [address] [facility] [address] [place] [address] documented as of this encounter Visit Diagnoses Not on filedocumented in this encounter Care Teams Plush Brusher Relationship Specialty Start Date End Date Agatha Richards MD [address] [place] [address] [place] [address] PCP - General 03/13/24 documented as of this encounter
== END 2024-12-03 09:26 | disposition home or self-care (01) ==
LOC: HO.10HDLNP 09:25
PROVIDERS: Visit Provider Internal Medicine
DX: E28.2 Polycystic ovarian syndrome (principal); E66.9 Obesity, unspecified; F41.0 Panic disorder [episodic paroxysmal anxiety]; N89.8 Other specified noninflammatory disorders of vagina; R14.0 Abdominal distension (gaseous)
CPT/HCPCS: 87338